=== PATIENT | male | born 1965 | race Caucasian/White ===

== ENCOUNTER 2016-12-05 16:31 | Emergency (ER) | payer MEDICARE ==
[2016-12-05 17:37] LABS: Basophils % (Auto) 0.5 % (0.0-1.8); Eosinophils % (Auto) 1.2 % (0.0-4.3); Hematocrit 41.2 % (35.5-45.6); Hemoglobin 14.1 gm/dl (11.8-15.2); Mean Corpuscular HGB Conc 34 % (32-34); Mean Corpuscular Hemoglobin 31 pg (28-32); Mean Corpuscular Volume 91 fl (84-94); Platelet Count 187 K/mm3 (140-440); Red Blood Count 4.55 M/mm3 (3.65-5.03); Red Cell Distribution Width 12.9 % (13.2-15.2); White Blood Count 9.2 K/mm3 (4.5-11.0)
[2016-12-05 18:00] LABS: BUN/Creatinine Ratio 12.22; Blood Urea Nitrogen 11 mg/dL (9-20); Calcium 8.8 mg/dL (8.4-10.2); Carbon Dioxide 31 mmol/L (22-30); Glucose 81 mg/dL (75-100)
[2016-12-05 18:01] LABS: Alanine Aminotransferase 10 units/L (7-56); Albumin/Globulin Ratio 1.1 %; Alkaline Phosphatase 97 units/L (35-129); Anion Gap 17 mmol/L; Potassium 3.5 mmol/L (3.6-5.0); Sodium 147 mmol/L (137-145); Total Protein 7.7 g/dL (6.3-8.2)
[2016-12-05 19:17] VITALS: BP 171/90
--- NOTE | 2016-12-05 20:22 | Emergency Department Report ---
- General Chief complaint: Skin/Abscess/Foreign Body Stated complaint: ABSCESS BEHIND EAR Time Seen by Provider: 12/05/16 20:09 Source: patient, EMS Mode of arrival: Stretcher Limitations: No Limitations, Language Barrier - History of Present Illness Initial comments: patient brought from shelter for possible abscess behind left ear for two weeks MD complaint: abscess/boil -: week(s) (two) - Related Data Home Medications Medication Instructions Recorded Confirmed Last Taken Gabapentin 800 mg PO TID 02/08/13 09/27/13 03/28/13 Previous Rx's Medication Instructions Recorded Last Taken Type Albuterol Sulfate [Ventolin HFA] 2 puff IH Q4H PRN #1 hfa.aer.ad 02/09/13 Rx Lisinopril [Zestril TAB] 10 mg PO QDAY #60 tablet 02/09/13 03/28/13 Rx Ibuprofen [Motrin] 800 mg PO TID PRN #30 tablet 03/27/13 03/28/13 Rx Rizatriptan Benzoate [Maxalt] 5 mg PO Q2HR #10 tab 09/27/13 Unknown Rx levETIRAcetam [Keppra] 500 mg PO BID #60 tablet 09/27/13 Unknown Rx Sulfamethoxazole/Trimethoprim 1 each PO BID #20 tablet 12/05/16 Unknown Rx [Bactrim DS TAB] Allergies Allergy/AdvReac Type Severity Reaction Status Date / Time No Known Allergies Allergy Verified 04/17/13 11:10 Abscess Boil HPI - HPI Chief Complaint: Skin/Abscess/Foreign Body Stated Complaint: ABSCESS BEHIND EAR Time Seen by Provider: 12/05/16 20:09 Home Medications: Home Medications Medication Instructions Recorded Confirmed Last Taken Gabapentin 800 mg PO TID 02/08/13 09/27/13 03/28/13 Previous Rx's Medication Instructions Recorded Last Taken Type Albuterol Sulfate [Ventolin HFA] 2 puff IH Q4H PRN #1 hfa.aer.ad 02/09/13 Rx Lisinopril [Zestril TAB] 10 mg PO QDAY #60 tablet 02/09/13 03/28/13 Rx Ibuprofen [Motrin] 800 mg PO TID PRN #30 tablet 03/27/13 03/28/13 Rx Rizatriptan Benzoate [Maxalt] 5 mg PO Q2HR #10 tab 09/27/13 Unknown Rx levETIRAcetam [Keppra] 500 mg PO BID #60 tablet 09/27/13 Unknown Rx Sulfamethoxazole/Trimethoprim 1 each PO BID #20 tablet 12/05/16 Unknown Rx [Bactrim DS TAB] Allergies/Adverse Reactions: Allergies Allergy/AdvReac Type Severity Reaction Status Date / Time No Known Allergies Allergy Verified 04/17/13 11:10 ED Review of Systems ROS: Stated complaint: ABSCESS BEHIND EAR Other details as noted in HPI Comment: All other systems reviewed and negative Constitutional: denies: chills, fever Respiratory: denies: cough, shortness of breath Cardiovascular: denies: chest pain Gastrointestinal: denies: nausea, vomiting ED Past Medical Hx - Past Medical History Previous Medical History?: Yes Hx Hypertension: Yes Hx CVA: Yes (RESIDUAL RIGHT HEMIPLEGIA) Hx Diabetes: Yes Hx Headaches / Migraines: Yes Hx Psychiatric Treatment: Yes - Surgical History Additional Surgical History: Surgery for his CVA- - Social History Smoking Status: Never Smoker Substance Use Type: None - Medications Home Medications: Home Medications Medication Instructions Recorded Confirmed Last Taken Type Gabapentin 800 mg PO TID 02/08/13 09/27/13 03/28/13 History Albuterol Sulfate [Ventolin HFA] 2 puff IH Q4H PRN #1 hfa.aer.ad 02/09/1303/21/13 Rx Lisinopril [Zestril TAB] 10 mg PO QDAY #60 tablet 02/09/13 09/27/13 03/28/13 Rx Ibuprofen [Motrin] 800 mg PO TID PRN #30 tablet 03/27/13 09/27/13 03/28/13 Rx Rizatriptan Benzoate [Maxalt] 5 mg PO Q2HR #10 tab 09/27/13 Unknown Rx levETIRAcetam [Keppra] 500 mg PO BID #60 tablet 09/27/13 Unknown Rx Sulfamethoxazole/Trimethoprim 1 each PO BID #20 tablet 12/05/16 Unknown Rx [Bactrim DS TAB] ED Physical Exam - General Limitations: No Limitations, Language Barrier General appearance: alert, in no apparent distress - Head Head exam: Present: other (2x2 cm swelling behind left ear, not-fluctuant, slightly tender, with mild erythema, no discharge) - Eye Eye exam: Present: normal appearance - ENT ENT exam: Present: normal exam - Neck Neck exam: Present: normal inspection - Respiratory Respiratory exam: Present: normal lung sounds bilaterally - Cardiovascular Cardiovascular Exam: Present: regular rate, normal rhythm, normal heart sounds - GI/Abdominal GI/Abdominal exam: Present: soft. Absent: tenderness, guarding - Neurological Exam Neurological exam: Present: alert, oriented X3 - Psychiatric Psychiatric exam: Absent: depressed, homicidal ideation, suicidal ideation - Skin Skin exam: Present: warm ED Course Vital Signs 12/05/16 12/05/16 12/05/16 16:48 18:50 19:10 Temperature 98.6 F 98.1 F Pulse Rate 98 H Respiratory 20 20 16 Rate Blood Pressure 163/103 Blood Pressure 165/99 171/90 [Left] O2 Sat by Pulse 95 98 Oximetry 12/05/16 19:17 Temperature Pulse Rate Respiratory 18 Rate Blood Pressure Blood Pressure [Left] O2 Sat by Pulse Oximetry ED Medical Decision Making - Lab Data Result diagrams: 12/05/16 17:14 12/05/16 17:14 Critical care attestation.: If time is entered above; I have spent that time in minutes in the direct care of this critically ill patient, excluding procedure time. ED Disposition Clinical Impression: Abscess Disposition: DC-01 TO HOME OR SELFCARE Is pt being admited?: No Does the pt Need Aspirin: No Condition: Stable Instructions: Abscess (ED) Referrals: PRIMARY CARE, [Primary Care Provider] - 3-5 Days
== END 2016-12-05 20:59 | disposition home or self-care (01) ==
LOC: ED 16:31
DX: H66.42 Suppurative otitis media, unspecified, left ear (principal); I10 Essential (primary) hypertension; E11.9 Type 2 diabetes mellitus without complications; G43.909 Migraine, unspecified, not intractable, without status migrainosus
CPT/HCPCS: 36415; 80053; 85025